=== PATIENT | female | born 1995 | race African-American/Black ===

== ENCOUNTER 2020-08-21 17:21 | Emergency (ER) | payer OTHER ==
[~2020-08-21] VITALS: Ht 157.5 cm; Wt 75.8 kg
[2020-08-21 19:25] VITALS: BP 121/67
[2020-08-21] MEDS ORDERED: DIFLUCAN200 MG PO (21:31)
== END 2020-08-21 20:10 | disposition home or self-care (01) ==
LOC: ER 17:21
DX: T74.21XA Adult sexual abuse, confirmed, initial encounter (principal); J45.909 Unspecified asthma, uncomplicated; Z88.2 Allergy status to sulfonamides; Z88.8 Allergy status to other drugs, medicaments and biological substances